=== PATIENT | male | born 1985 | race African-American/Black ===

== ENCOUNTER 2016-10-15 04:14 | Emergency (ER) | payer SELFPAY ==
[~2016-10-15] VITALS: Ht 185.4 cm; Wt 106.8 kg
[2016-10-15] MEDS ORDERED: LORTAB 5-325 M1 EACH PO (04:28)
[2016-10-15] MEDS ORDERED: AMOXICILLIN500 MG PO (04:28)
[2016-10-15] MEDS ORDERED: MEDROL DOSEPAK4 MG PO (04:28)
[2016-10-15 05:07] VITALS: BP 144/70
== END 2016-10-15 05:08 | disposition home or self-care (01) ==
LOC: EME 04:14
DX: J02.0 Streptococcal pharyngitis (principal); F17.200 Nicotine dependence, unspecified, uncomplicated; Z71.6 Tobacco abuse counseling
CPT/HCPCS: 99281; 99283; J7512